=== PATIENT | female | born 1935 | race Caucasian/White ===

== ENCOUNTER 2017-05-11 11:50 | Observation (INO) | payer MEDICARE, BC ==
[~2017-05-11] VITALS: Ht 165.1 cm; Wt 81.6 kg
--- NOTE | ~2017-05-11 | OR ---
Unit #: [id number] #: [id number] Patient: HARIKA SOLITARIO [id number] [address] [place], [place] [address] [id number] I MR#: [id number] NAME: HARIKA SOLITARIO ROOM: 471 Date of Procedure: 05/12/2017 Admission Date: 05/11/2017 Surgeon: Deangelo Jones M.D. : 1935 Attending Physician: Deangelo Jones M.D. Primary Care Physician: Brittany Logan A.P.R.N. OPERATIVE REPORT PREOPERATIVE DIAGNOSIS Markedly comminuted intra-articular left distal radius fracture. POSTOPERATIVE DIAGNOSIS Markedly comminuted intra-articular left distal radius fracture. PROCEDURE PERFORMED Closed reduction and application of external fixator. ANESTHESIA General. ESTIMATED BLOOD LOSS 20 mL. DESCRIPTION OF PROCEDURE The patient was brought to the operating room, given a general anesthetic. She will be given 2 g of Kefzol. Tourniquet was placed around the left arm. Left arm was prepped and draped. We then made 2 small incisions over the radius proximal to the fracture and using the [employer] mono tube external fixator, the 2 pins were placed in the radius. We then placed 2 pins in the second metacarpal and after this was done, the C-arm was used to be sure the pins were in deep enough. Once the pin position was confirmed, we then applied the pin clamp and the wings to the pin clamp. The fiberglass struts were then positioned through the holders and the wrist fracture was reduced under C-arm. Once the reduction was as good as possible, we then tightened these down to secure it in place. Once it was secured, the C-arm was used to confirm position once again. We then applied sterile dressings to the pin sites. The tourniquet was released. Sterile Huber wrap was positioned over the construct and her general anesthetic was reversed. Dictated by... Angelica Ambriz/sia TD: 05/13/2017 03:48 JOB #: [id number] Unit #: [id number] #: [id number] Patient: HARIKA SOLITARIO OPERATIVE REPORT Page 1 of 1 X Deangelo Jones MD PROCEDURE OPERATIVE NOTE
--- NOTE | ~2017-05-11 | DS ---
Unit #: [id number] #: [id number] Patient: HARIKA SOLITARIO [id number] [address] [address] [id number] I MR#: [id number] NAME: HARIKA SOLITARIO ROOM: 47 Age: 81 Sex: F Admission Date: 05/11/2017 : 1935 Discharge Date: 05/12/2017 Attending Physician: Deangelo Jones M.D. Primary Care Physician: Brittany Logan A.P.R.N. DISCHARGE SUMMARY HISTORY OF PRESENT ILLNESS Ms. Solitario was admitted on May 11 and on the morning of May 12 taken to the operating room where she had an external fixator applied to her left wrist fracture. Postoperatively, she has tolerated a diet. Her pain is under control with oral pain medicine. It is felt she can be discharged home. She is to keep her arm in a sling and elevated, ice to the wrist and she will follow up in the office in one week. DISCHARGE MEDICATIONS Her medications are her routine home medicines on discharge plus [place] 5/325. Dictated by... Deangelo Jones M.D. GREG/marleny TD: 05/14/2017 09:24 JOB #: [id number] DISCHARGE SUMMARY Page 1 of 1 X Deangelo Jones MD X DISCHARGE SUMMARY
--- NOTE | ~2017-05-11 | EKG ---
PATIENT: HARIKA SOLITARIO UNIT #: [id number] Ventricular Rate: 59 BPM Atrial Rate: 59 BPM P-R Interval: 176 ms QRS Duration: 92 ms Q-T Interval: 436 ms QTC Calculation(Bezet): 431 ms P [place]: 83 degrees Calculated R [place]: 8 degrees Calculated T [place]: 47 degrees Diagnosis Line: Sinus bradycardia Diagnosis Line: Otherwise normal ECG Diagnosis Line: No previous ECGs available Diagnosis Line: Confirmed by KRISH LONGORIA MD ([id number]) on 05/13/2017 Diagnosis Line: 2:54:54 PM INTERPRETING MD: SWATI JARAMILLO
--- NOTE | ~2017-05-11 | CO ---
Unit #: [id number] #: [id number] Patient: HARIKA JUDGE [id number] [address] [place], [place] [address] [id number] I MR#: [id number] NAME: HARIKA JUDGE ROOM: 471 Age: 81 Sex: F Admission Date: 05/11/2017 : 1935 Attending Physician: Deangelo Jones M.D. Primary Care Physician: Brittany Logan A.P.R.N. Consultation Date: 05/12/2017 CONSULTATION REPORT REASON FOR CONSULT Left wrist fracture. HISTORY OF PRESENT ILLNESS Ms. Judge is an 81-year-old female, who fell after seeing a snake in her garden. She was startled, lost her balance and landed on the left upper extremity. She admits to pain and swelling at the left wrist. She denies any numbness. She went to the emergency room where x-rays were taken. She was put in a posterior splint and she presents today for further evaluation. PAST MEDICAL HISTORY Significant for hypothyroid, hyperlipidemia, allergic rhinitis. MEDICATIONS Include Synthroid and multivitamin. ALLERGIES Erythromycin. PAST SURGICAL HISTORY Significant for eye surgery. SOCIAL HISTORY The patient denies any smoking, alcohol or illicit drug use. FAMILY HISTORY Insignificant. REVIEW OF SYSTEMS 10 organ systems reviewed. The patient denies any blurry vision, congestion, sore throat, shortness of breath, chest pain, abdominal pain, urinary incontinence, numbness, tingling, skin ulcers, lesions, anxiety, depression. Positive for joint pain. PHYSICAL EXAMINATION GENERAL: No acute distress. Alert and oriented x3. VITAL SIGNS: Temperature 97.7, pulse 59, respirations 16, blood pressure 120/55. HEENT: PERRLA. Nonicteric sclerae. THORAX: Trachea midline. No thyromegaly. CARDIAC: S1, S2. No extra sounds or murmurs. LUNGS: Clear to auscultation. No rales or rhonchi. Unit #: [id number] #: [id number] Patient: HARIKA JUDGE ABDOMEN: Nondistended and nontender. Positive bowel sounds. : Deferred. MUSCULOSKELETAL: 2+ radial bilateral pulses. NEUROLOGIC: Cranial nerves II through XII are intact. SKIN: Cool and dry. PSYCH: Good insight and good judgment. Mood and affect are pleasant. DIAGNOSTIC STUDIES IMAGING STUDIES: On admission, x-rays of the left breast was ordered and reviewed and shows a distal radius fracture that is intra-articular with disruption of the articular surface of the radius. Displacement impaction is also found. Positive displaced ulnar styloid fracture. ASSESSMENT Left distal radius and ulnar fracture. PLAN I discussed treatment options with the patient. I have recommended a closed reduction with possible external fixator to be done by Dr. Jones this morning. Risks and benefits of the procedure were explained as well as the description of procedure in its entirety along with any complications. The patient has decided to proceed. We will go ahead and get this scheduled, get the usual preoperative lab work and testing complete and have the patient medically cleared for surgery. Dictated by... Coco Cole for Angelica Ambriz/sia TD: 05/14/2017 04:50 JOB #: [id number] CONSULTATION REPORT Page 1 of 1 X Juliana Pineda CONSULTATION REPORT
--- NOTE | ~2017-05-11 | CR132 ---
[facility] A Service of [facility] RADIOLOGY TEXT RESULTS PATIENT: HARIKA SOLITARIO LOCATION: [facility]10-01 : [birth year] UNIT #: [id number] AGE: [address]: Deangelo Jones MD SEX: F ORDER DR: [id number] [facility] [address]. [place], [place] [address] [id number] MR#: [id number] Acc #: [id number] NAME: HARIKA SOLITARIO : 1935 SEX: F STUDY DATE/TIME: 05/11/2017 UNIT: [facility] ROOM: [facility] STUDY DESCRIPTION: CR Forearm 2 View Lt Attending Physician: Varinder Ramos M.D. Ordering Physician: [facility] Primary Care Physician: Brittany Logan A.P.R.N. MEDICAL IMAGING REPORT This report is preliminary unless electronic signature is present EXAM Left forearm 2 views 05/11/2017 1240 hours HISTORY 81-year-old woman who fell in the yard today while running away from a snake. Forearm and wrist pain. COMPARISON Wrist film today. FINDINGS AP and lateral views of the radius and ulna demonstrate no proximal fracture. The elbow joint is not included in the field of view. Comminuted impacted distal radial fracture again demonstrated. IMPRESSION There is a comminuted impacted angulated distal radial fracture with disruption of the articular surface of the radius at the radiocarpal joint. Surgical consultation recommended. There is a displaced ulnar styloid fracture. No proximal fracture is seen. Dictated by... Adrianna Phan M.D. THIS IS AN ELECTRONICALLY VERIFIED REPORT Adrianna Phan M.D. at 05/12/2017 3:27 PM DELMA/marya TD: 05/11/2017 20:12 JOB #: [id number] MEDICAL IMAGING REPORT [facility] A Service [facility] RADIOLOGY TEXT RESULTS PATIENT: HARIKA SOLITARIO LOCATION: [place] [address]- : [birth year] UNIT #: [id number] AGE: [address]: Deangelo Jones MD SEX: F ORDER DR: Page 1 of 1 COPY
--- NOTE | ~2017-05-11 | CR281 ---
[facility] A Service of [facility] RADIOLOGY TEXT RESULTS PATIENT: HARIKA SOLITARIO LOCATION: [place] [address] : [birth year] UNIT #: [id number] AGE: [address]: Deangelo Jones MD SEX: F ORDER DR: [id number] [facility] [address]. [place], [place] [address] [id number] I MR#: [id number] Acc #: [id number] NAME: HARIKA SOLITARIO : 1935 SEX: F STUDY DATE/TIME: 05/11/2017 UNIT: [facility] ROOM: [facility] STUDY DESCRIPTION: CR Wrist Min 3 View Lt Attending Physician: Varinder Ramos M.D. Ordering Physician: [facility] Primary Care Physician: Brittany Logan A.P.R.N. MEDICAL IMAGING REPORT This report is preliminary unless electronic signature is present EXAM Left wrist 3 views 05/11/2017 1230 hours HISTORY 81-year-old woman who fell in her year while running away a snake today. Wrist and forearm pain. COMPARISON None. FINDINGS AP, lateral and oblique views demonstrate acute comminuted fractures of the distal radius and ulna which extend intra-articularly. The articular surface of the radius is markedly disrupted. There is angulation vertex dorsal at both the distal radius and ulna. There is impaction. Surgical consultation is recommended. There is no fracture of the carpal bones seen. IMPRESSION Acute, severely comminuted fracture of the distal radius extending intra-articularly with marked disruption of the articular surface of the radius with displacement and impaction. There is mild vertex dorsal angulation. There is also a displaced ulnar styloid fracture. No carpal bone fracture seen. Surgical consultation is recommended. Dictated by... Adrianna Phan M.D. THIS IS AN ELECTRONICALLY VERIFIED REPORT Adrianna Phan M.D. at 05/12/2017 3:27 PM SMM/marya [facility] A Service of [facility] & [facility] RADIOLOGY TEXT RESULTS PATIENT: HARIKA SOLITARIO LOCATION: [place] [address] : [birth year] UNIT #: [id number] AGE: [address]: Deangelo Jones MD SEX: F ORDER DR: TD: 05/11/2017 20:04 JOB #: [id number] MEDICAL IMAGING REPORT Page 1 of 1 COPY
--- NOTE | ~2017-05-11 | CO ---
Unit #: [id number] #: [id number] Patient: HARIKA SOLITARIO [id number] [address] [place], [place] [address] [id number] I MR#: [id number] NAME: HARIKA SOLITARIO. ROOM: 47 Age: 81 Sex: F Admission Date: 05/11/2017 : 1935 Attending Physician: Deangelo Jones M.D. Primary Care Physician: Brittany Logan A.P.R.N. Consultation Date: 05/11/2017 CONSULTATION REPORT CHIEF COMPLAINT Fall. HISTORY OF PRESENT ILLNESS The patient is an 81-year-old female with history of hypothyroidism and hyperlipidemia, brought to the emergency room status post fall. The patient stated that the patient was working at a yard, and sudden sneak and then she got panic and then she fell down backwards. The patient had injury to the left upper extremity and the patient has comminuted intra-articular distal radius fracture and the patient has been admitted to Orthopedic Surgery Service. Internal Medicine has been consulted for the clearance. The patient denies any chest pain. Denies any nausea, vomiting, or dizziness. Denies any loss of consciousness. PAST MEDICAL HISTORY History of hypothyroidism, hyperlipidemia. HOME MEDICATIONS The patient is on Synthroid and cholesterol medications. ALLERGIES Allergic to erythromycin base. FAMILY HISTORY Reviewed, none. REVIEW OF SYSTEMS Positive for fall. Positive for upper extremity injury. Denies any chest pain. Denies any nausea and vomiting. Denies any headache. Other systems are reviewed and all are none. SOCIAL HISTORY No history of smoking cigarettes. Denies any illicit drug abuse. Denies any alcohol. PHYSICAL EXAMINATION GENERAL: The patient is lying on bed. VITAL SIGNS: Temperature 97.6, pulse 60, respirations 13, blood pressure 109/61, saturating 97% at room air. HEENT: Head, atraumatic and normocephalic. Pupils are equal, round, and reactive to light and accommodation. Extraocular movements are intact. NECK: Supple. Unit #: [id number] #: [id number] Patient: HARIKA SOLITARIO LUNGS: Decreased air entry at the bases. HEART: Regular rate and rhythm. ABDOMEN: Soft. Positive bowel sounds. EXTREMITIES: Status post splint of the left upper extremity. NEUROLOGIC: No focal motor deficit. DIAGNOSTIC STUDIES LABORATORY RESULTS: Pending. IMAGING STUDIES: X-ray shows comminuted intra-articular distal radius fracture. ASSESSMENT 1. Status post fall. 2. Left radius fracture. 3. Hypothyroidism. PLAN To continue the status post splint and awaiting the surgical procedure tomorrow by orthopedic surgeon. I will check the labs, CBC, BMP, UA, EKG, and repeat the CBC, BMP, and TSH in the morning. Follow with the labs to clear for the surgery in the morning. The patient is low to moderate risk for the orthopedic procedure, pending the lab results, and further recommendation will follow. Dictated by... Angelica Ingram/sia TD: 05/14/2017 04:04 JOB #: [id number] CONSULTATION REPORT Page 1 of 1 X TA NOLAN MD X CONSULTATION REPORT
[2017-05-11 16:44] LABS: BASOPHIL# 0.1 X10e3 (0-0.3); BASOPHIL% 2.1 % (0-2.5); DIFF IND NO; EOSINOPHIL# 0.2 X10e3 (0-0.7); EOSINOPHIL% 4.2 % (0.0-7.0); HEMATOCRIT 40.6 % (35.0-45.0); HEMOGLOBIN 13.5 gm/dL (12.0-16.0); LYMPHOCYTE# 0.8 X10e3 (1.0-3.5); LYMPHOCYTE% 14.5 % (17.0-45.0); MEAN CELL VOLUME 96.5 FL (83-96); MEAN CORPUSCULAR HEMOGLOBIN 32.2 PG (28-34); MEAN CORPUSCULAR HGB CONC 33.4 g/dL (30-36); MEAN PLATELET VOLUME 9.9 FL (6.5-11.5); MONOCYTE# 0.5 X10e3 (0-1.0); MONOCYTE% 8.1 % (3.0-12.0); NEUTROPHIL# 4.1 X10e3 (1.5-7.1); NEUTROPHIL% 71.1 % (40-75); PLATELET COUNT 203 X10e3 (140-420); RED CELL DISTRIBUTION WIDTH 14.3 % (11.0-15.5); WHITE BLOOD COUNT 5.7 X10e3 (4.0-10.5)
[2017-05-11] MEDS ORDERED: SYNTHROID (16:54)
[2017-05-11] MEDS ORDERED: FOSAMAX70 MG PO (16:54)
[2017-05-11] MEDS ORDERED: LIPITOR (16:54)
[2017-05-11] MEDS ORDERED: ZYRTEC10 M1 PO (16:56)
[2017-05-11] MEDS ORDERED: LEVOTHYROXINE100 MCG PO (16:56)
[2017-05-11] MEDS ORDERED: LIPITOR PO (16:56)
[2017-05-11 17:09] LABS: BUN/CREATININE RATIO 7.27; CALCIUM SERUM 9.3 mg/dL (8.4-10.2); CREATININE SERUM 1.1 mg/dL (0.6-1.4); GLOM FILT RATE Estimated 47.1 mL/min (>60); POTASSIUM 4.1 mmol/L (3.5-5.1)
[2017-05-11 17:45] LABS: CALCIUM SERUM 8.8 mg/dL (8.4-10.2); CREATININE SERUM 0.8 mg/dL (0.6-1.4); GLOM FILT RATE Estimated 69.2 mL/min (>60); POTASSIUM 4.7 mmol/L (3.5-5.1)
[2017-05-11 22:34] LABS: URINE SOURCE CLEAN CATCH
[2017-05-11 22:38] LABS: URINE APPEARANCE CLOUDY; URINE BILIRUBIN NEG (NEG); URINE BLOOD NEG (NEG); URINE COLOR DK YELLOW; URINE GLUCOSE NEG (NEG); URINE KETONE 2+ (NEG); URINE LEUKOCYTE ESTERASE 2+ (NEG); URINE NITRATE POS (NEG); URINE PH 5.5 (5-8); URINE PROTEIN TRACE (NEG); URINE SPECIFIC GRAVITY 1.018 (1.003-1.035); URINE UROBILINOGEN 0.2 MG/DL (NEG)
[2017-05-11 22:40] LABS: CULTURE INDICATED? YES; URINE BACTERIA AUWI 4+ (NEGATIVE); URINE SQUAMOUS EPITHELIAL CELL NONE SEEN /[HPF]; UWBCS1 AUWI 100-200 (0-5)
[2017-05-12 02:58] LABS: HEMATOCRIT 39.7 % (35.0-45.0); HEMOGLOBIN 13.3 gm/dL (12.0-16.0); MEAN CELL VOLUME 96.3 FL (83-96); MEAN CORPUSCULAR HEMOGLOBIN 32.3 PG (28-34); MEAN CORPUSCULAR HGB CONC 33.5 g/dL (30-36); MEAN PLATELET VOLUME 9.6 FL (6.5-11.5); RED BLOOD COUNT 4.12 X10e (3.90-5.30); RED CELL DISTRIBUTION WIDTH 14.4 % (11.0-15.5); WHITE BLOOD COUNT 7.8 X10e3 (4.0-10.5)
[2017-05-12 03:18] LABS: CALCIUM SERUM 8.9 mg/dL (8.4-10.2); CREATININE SERUM 0.8 mg/dL (0.6-1.4); GLOM FILT RATE Estimated 69.2 mL/min (>60); POTASSIUM 4.6 mmol/L (3.5-5.1)
[2017-05-12] MEDS ORDERED: OMNICEF300 MG PO (12:18)
[2017-05-12] MEDS ORDERED: LORTAB 5-325 M1 EACH PO (12:20)
== END 2017-05-12 15:04 | disposition home or self-care (01) ==
LOC: CED 11:50 → CEDOF 15:51 → CED 16:13 → C4C 18:43 → CEDOF 18:43 → C4C 05-12 04:27
PROVIDERS: Emergency Medicine; Internal Medicine
DX: S52.572A Other intraarticular fracture of lower end of left radius, initial encounter for closed fracture (principal); E03.9 Hypothyroidism, unspecified; E78.5 Hyperlipidemia, unspecified; Z88.1 Allergy status to other antibiotic agents; Z79.82 Long term (current) use of aspirin; Z79.899 Other long term (current) drug therapy; W18.30XA Fall on same level, unspecified, initial encounter; Y93.H2 Activity, gardening and landscaping
CPT/HCPCS: 36415; 73090; 73110; 80048; 81003; 84443; 85025; 85027; 87086; 87088; 87186; 93005; 96374; 96375; 96376; 99285; G0378; J0690; J1170; J2270; J2405; J3010